=== PATIENT | male | born 1945 | race Caucasian/White ===

== ENCOUNTER 2016-06-16 06:51 | Emergency (ER) | payer OTHER ==
[~2016-06-16] VITALS: Ht 185.4 cm; Wt 95.3 kg
[2016-06-16 07:03] VITALS: BP 158/85; PULSE 66; RESP 16; TEMP 98.2; O2SAT 99
--- NOTE | 2016-06-16 07:06 | NUR ---
ambulated to bed 8
--- NOTE | 2016-06-16 07:12 | NUR ---
shingles type of rashes on upper abdominal area.very painful.
--- NOTE | 2016-06-16 07:14 | NUR ---
ER at bedside examining patient.
--- NOTE | 2016-06-16 07:28 | NUR ---
Patient given written and verbal discharge instructions and verbalizes understanding. ER MD discussed with patient the results and treatment provided. Patient in stable condition. ID arm band removed. I Rx norco,acyclovir given. Patient educated on pain management and to follow up with PMD. Pain Scale [3]. Opportunity for questions provided and answered.
[2016-06-16 07:29] VITALS: BP 140/82; PULSE 67; RESP 16; TEMP 98.2; O2SAT 99
[2016-06-16] MEDS ORDERED: KETOROLAC TROMETHAMINE 60 MG/2 ML VIAL IM ONE (07:30)
== END 2016-06-16 07:29 | disposition home or self-care (01) ==
LOC: SED 06:51
DX: B02.9 Zoster without complications (principal); Z88.8 Allergy status to other drugs, medicaments and biological substances
CPT/HCPCS: 96372; 99283; J1885

== ENCOUNTER 2016-08-27 15:07 | Emergency (ER) | payer OTHER ==
[~2016-08-27] VITALS: Ht 185.4 cm; Wt 95.3 kg
[2016-08-27 15:25] VITALS: BP 121/75; PULSE 68; RESP 20; TEMP 98.2; O2SAT 99
--- NOTE | 2016-08-27 15:31 | NUR ---
Pt placed to ER bed 8. GRETCHEN Torres at bedside.
[2016-08-27] MEDS ORDERED: HYDROcodone/ACETAMIN 7.5-325 MG TAB PO ONE (15:45)
--- NOTE | 2016-08-27 15:46 | NUR ---
Patient is brought in by . Patient reports that he tripped over a broom at home today around noon hitting his left knee, unable to bend knee.. Patient reports pain of 10/10. Pedal pulses are present. No other complaints/injuries per patient or as noted.
--- NOTE | 2016-08-27 15:51 | NUR ---
GRETCHEN Tran at bedside
[2016-08-27 16:31] VITALS: BP 121/75; PULSE 68; RESP 20; TEMP 98.2; O2SAT 99
--- NOTE | 2016-08-27 16:31 | NUR ---
Patient given written and verbal discharge instructions and verbalizes understanding. ER MD discussed with patient the results and treatment provided. Patient in stable condition. ID arm band removed. Rx of Tramadol and Motrin given. Patient educated on pain management and to follow up with PMD in 2 days. Pain Scale 0/10. Opportunity for questions provided and answered.
== END 2016-08-27 16:31 | disposition home or self-care (01) ==
LOC: SED 15:07
DX: M25.562 Pain in left knee (principal); Z88.8 Allergy status to other drugs, medicaments and biological substances; W19.XXXA Unspecified fall, initial encounter; Y93.89 Activity, other specified; Y92.89 Other specified places as the place of occurrence of the external cause; Y99.8 Other external cause status
CPT/HCPCS: 73564; 99284

== ENCOUNTER 2019-02-12 14:43 | Emergency (ER) | payer OTHER ==
[~2019-02-12] VITALS: Ht 185.4 cm; Wt 98.9 kg
[2019-02-12 15:55] VITALS: BP_SYST 157
--- NOTE | 2019-02-12 16:02 | NUR ---
Patient to ER bed H1 to gown for evaluation. Side rails up.
--- NOTE | 2019-02-12 16:10 | NUR ---
ER at bedside examining patient.
[2019-02-12] MEDS ORDERED: NACL 0.9% 1,000 ML IV ONE (16:13)
[2019-02-12] MEDS ORDERED: MORPHINE 4 MG/ML INJ. SYRINGE IVP ONE (16:15)
[2019-02-12] MEDS ORDERED: KETOROLAC TROMETHAMINE 30 MG VIAL IVP ONE (16:15)
--- NOTE | 2019-02-12 16:48 | NUR ---
medicated the pt w/ toradol and Morphine 4mg per MD order. Will reassess
[2019-02-12 16:52] LABS: EOSINOPHILS # (AUTO) 0.2 K/uL (0.0-0.4); EOSINOPHILS % (AUTO) 2.8 % (0.0-4.0); LYMPHOCYTES # (AUTO) 1.8 K/uL (1.0-5.5); MONOCYTES # (AUTO) 0.6 K/uL (0.0-1.0); NEUTROPHILS # (AUTO) 3.5 K/uL (1.8-7.7); WHITE BLOOD COUNT (AUTO) 6.1 K/uL (4.8-10.8)
[2019-02-12 16:59] LABS: ANION GAP 8 (5-15); CALCIUM 8.8 mg/dL (8.4-11.0); CHLORIDE 101 mmol/L (98-107); CREATININE 0.81 mg/dL (0.55-1.30); GLUCOSE 108 mg/dL (70-99); POTASSIUM 3.8 mmol/L (3.5-5.1); SODIUM SERUM 133 mmol/L (136-145); UREA NITROGEN, BLOOD 14 mg/dL (8-21)
[2019-02-12 17:03] LABS: BASOPHILS % (AUTO) 0.7 % (0.0-2.0); HEMOGLOBIN 16.7 g/dL (14.0-18.0); LYMPHOCYTES % (AUTO) 30.1 % (20.5-51.5); MEAN CORPUSCULAR HEMOGLOBIN 34 pg (27-31); MEAN CORPUSCULAR HGB CONC 36 % (32-36); MEAN CORPUSCULAR VOLUME 96 fL (79.0-98.0); MONOCYTES % (AUTO) 9.2 % (1.7-9.3); NEUTROPHILS % (AUTO) 57.2 % (40.0-70.0); PLATELET COUNT (AUTO) 140 K/uL (130-430); RED BLOOD CELL COUNT(AUTO) 4.92 MIL/uL (4.2-6.2); RED CELL DISTRIBUTION WIDTH 12.9 % (9.0-15.0)
[2019-02-12 17:03] LABS: BILIRUBIN,URINE NEGATIVE (NEGATIVE); BLOOD, URINE NEGATIVE (NEGATIVE); CLARITY/URINE CLEAR (CLEAR); COLOR,URINE YELLOW (YELLOW); GLUCOSE,URINE NEGATIVE (NEGATIVE); KETONES,URINE TRACE (NEGATIVE); LEUKOCYTE ESTERASE ,URINE NEGATIVE (NEGATIVE); NITRITE, URINE NEGATIVE (NEGATIVE); PROTEIN URINE NEGATIVE (NEGATIVE)
[2019-02-12 17:04] LABS: ALANINE AMINOTRANSFERASE 45 U/L (12-78); ALBUMIN 4.2 g/dL (3.4-4.8); ASPARTATE AMINOTRANSFERASE 26 U/L (10-37); TOTAL BILIRUBIN 0.4 mg/dL (0.0-1.0)
--- NOTE | 2019-02-12 17:10 | NUR ---
Patient transported to radiology via gurney, accompanied by traditional maori health practitioner.
[2019-02-12 18:51] VITALS: BP_SYST 157
--- NOTE | 2019-02-12 18:56 | NUR ---
Patient given written and verbal discharge instructions and verbalizes understanding. ER MD discussed with patient the results and treatment provided. Patient in stable condition. ID arm band removed. Rx of Naproysn given. Patient educated on pain management and to follow up with PMD. Pain Scale 0/10. Opportunity for questions provided and answered. Medication side effect fact sheet provided.
== END 2019-02-12 18:51 | disposition home or self-care (01) ==
LOC: SED 14:43
DX: S39.012A Strain of muscle, fascia and tendon of lower back, initial encounter (principal); Z88.8 Allergy status to other drugs, medicaments and biological substances; X50.9XXA Other and unspecified overexertion or strenuous movements or postures, initial encounter; Y93.89 Activity, other specified; Y92.89 Other specified places as the place of occurrence of the external cause; Y99.8 Other external cause status
CPT/HCPCS: 36415; 74176; 80053; 81003; 85025; 96374; 96375; 99284; J1885; J2270; J7030